=== PATIENT | male | born 1995 | race Caucasian/White ===

== ENCOUNTER 2018-03-19 21:47 | Emergency (ER) | payer MEDICAID, SELFPAY ==
[2018-03-19 21:48] VITALS: BP 133/73; PULSE 87; RESP 16; TEMP 37.1; O2SAT 100; BMI 22.1
[2018-03-19] MEDS: 0.9% Normal Saline 1,000 ML 1000 ML IV (22:30)
[2018-03-19 22:43] LABS: Absolute Neutrophil Count 7.1 X10^3/uL (2.0-7.7); Basophil# 0.04 X10^3/uL; Basophil% 0.3 % (0-1); Eosinophil# 0.58 X10^3/uL; Eosinophils% 5.1 % (0-5); Hematocrit 35.1 % (40-54); Mean Corp Hgb Conc 34.2 g/gl (32-36); Mean Corpuscular Volume 84.8 fL (80-94); Mean Platelet Vol. 9.5 fl (6.2-12.0); Monocyte# 0.65 X10^3/uL; Monocyte% 5.7 % (0-10); Neutrophil # 7.09 X10^3/uL (2.7-7.7); Neutrophil % 61.7 % (47-70); POSITIVE COUNT NO; POSITIVE DIFFERENTIAL NO; POSITIVE MORPHOLOGY NO; Platelet Count 236 K/mm3 (150-450); RBC Distribution Width CV 12.4 % (11.6-14.6); RBC Distribution Width SD 38.3 fl (35.1-43.9); Red Blood Count 4.14 M/mm3 (4.6-6.2); White Blood Count 11.5 K/mm3 (4.4-11.0)
[2018-03-19 22:59] LABS: AST(SGOT) 12 U/L (15-37); Alanine Aminotransfer ALT/SGPT 21 U/L (16-61); Albumin, Serum 3.5 g/dL (3.2-5.0); Alkaline Phosphatase 65 U/L (45-117); Anion Gap 8 (5-15); BUN 13 mg/dL (7-18); BUN/Creat Ratio 16.4 RATIO (10-20); Bilirubin, Direct 0.09 mg/dL (0.00-0.30); Calcium,Total 8.1 mg/dL (8.5-10.1); Chloride 110 mmol/L (98-107); Creatinine, Serum 0.79 mg/dL (0.70-1.30); EST Glomerular Filtration Rate 129 mL/min (>60); Est Glom Filt Rate - Afr Amer 156 mL/min (>60); Estimated Creatinine Clearance 139.67 ml/min; Globulin 2.9 g/dL (2.2-4.2); Glucose 100 mg/dL (74-106); Lipase 217 U/L (73-393); Potassium 3.7 mmol/L (3.5-5.1); Protein, Total 6.4 g/dL (6.4-8.2); Sodium Level 142 mmol/L (136-145)
--- NOTE | 2018-03-19 23:24 | ED.DCSUM_ITS ---
- ER Visit Summary Date of Service: 03/19/18 Chief Complaint: Lump on abdomen History of Present Illness: The patient is a 23 M who reports that he has had a lump on his upper abdomen that began approximate 2 weeks ago. Is increased in size over the past 3 days. Reports he has a stabbing pain when his touch is 7 out of 10 severity. Also reports his last problem was 4 days ago. Typically he goes daily. Patient reports that he has been more fatigued than usual for the past month. He complains of a sore throat that 6 out of 10 severity. He denies any other complaints Physical Examination: Vitals: Stable. Afebrile. General: Well-nourished and well-developed. Head: Normocephalic atraumatic. Neck: Supple, no lymphadenopathy. No JVD. Nontender. Cardiovascular: Regular rate and rhythm. No murmurs. Respiratory: No respiratory distress. Clear to auscultation bilaterally. Abdominal: Soft, nontender, nondistended, normal bowel sounds. No guarding, rebound, or peritoneal signs. Approximately 1 cm palpable mass in the subcutaneous tissues in the epigastric region. No overlying erythema or warmth to suggest an abscess. Back: Nontender. Extremities: Nontender, no edema. Skin: Normal color, no rash. Neurologic: Alert and oriented ?3. Cranial nerves II through XII are intact. Normal strength and sensation. Psych: Normal affect. Test Results: CBC is more for white count 11.5 and H&H 12.0 35.1. Chem-7 more for chloride 110 and calcium of 8.1. LFTs marked for an AST of 12. Lipase normal. CT flank shows no acute disease. Emergency Department Course and Treatment: Patient's resting comfortably without complaint. Treatment Plan: Patient be discharged instructions follow-up his primary care physician in 1 week if not improving. Return to the emergency department for any worsening symptoms. Disposition: To home in improved and stable condition. Impression: 1. Enlarged lymph node epigastric region. This note was generated with [employer] dictation software. It may contain incorrect words, spelling, and punctuation that were not noted in review of the chart prior to signing ED Disposition - Plan for ED Patient: Chief Complaint: Wound Instructions: ED Abdominal Pain Unkn Cause Referrals: Doctor,Your [STAFF PHYSICIAN] - 1 Week if not improving
[2018-03-19 23:48] VITALS: BP 129/70; PULSE 80; RESP 16; O2SAT 97
== END 2018-03-19 23:50 | disposition home or self-care (01) ==
PROVIDERS: Emergency Provider Emergency Medicine
DX: R59.0 Localized enlarged lymph nodes (principal); Z72.0 Tobacco use
CPT/HCPCS: 74176; 80048; 80076; 83690; 85025; 99283; A4216

== ENCOUNTER 2018-04-01 14:57 | Emergency (ER) | payer MEDICAID, SELFPAY ==
[2018-04-01 15:00] VITALS: BP 100/64; PULSE 94; RESP 17; TEMP 36.8; O2SAT 98; BMI 23.4
--- NOTE | 2018-04-01 15:50 | ED.VISSUMM ---
- ER Visit Summary Date of Service: 04/01/18 Chief Complaint: Epigastric and chest fullness History of Present Illness: The patient is a 23 M has known pectus excavatum and was seen here several weeks ago worked up and says he has this tissue between his ribs and lower sternum. Denies other symptoms. Today he has had some mild nausea. No vomiting. No diarrhea Physical Examination: Well-appearing young male. Vital signs are stable and afebrile. He does not look septic or toxic. He is in no acute distress. H EENT exam unremarkable. Neck nontender. Lungs clear to auscultation bilaterally. Heart regular rate and rhythm no murmur. Abdomen soft nondistended normal bowel sounds no peritoneal signs. Patient has either bone or cartilage at the site subxiphoid area of his abdomen. Abdominal pain. There is no hernia. I do not suspect this to be a mass. He is moving all 4 extremities. They are neurovascularly intact. Nontender. No edema. Back nontender neurologic exam is normal. Test Results: Patient had a workup 2-3 weeks ago which was negative including a CT of the abdomen and pelvis. I explained both he and his significant other this is most likely either bony or cartilaginous tissue. And he can follow-up. Emergency Department Course and Treatment: [] Treatment Plan: Discharged to follow-up with PCP. Disposition: Discharge Impression: History of pectus excavatum Evaluation for epigastric and lower chest fullness This note was generated with [employer] dictation software. It may contain incorrect words, spelling, and punctuation that were not noted in review of the chart prior to signing ED Disposition - Plan for ED Patient: Chief Complaint: Other, Pain/Inj Referrals: Care Physician,No Primary [Primary Care Provider] -
--- NOTE | 2018-04-01 15:53 | ED.DEP ---
ED Disposition - Plan for ED Patient: Disposition: Home or Assisted Living Chief Complaint: Other, Pain/Inj Referrals: Chris Kaur MD [STAFF PHYSICIAN] - As Needed Additional Instructions: This is most likely either bony or cartilaginous tissue secondary to your pectus excavatum of your chest wall
[2018-04-01 16:06] VITALS: RESP 14
== END 2018-04-01 16:16 | disposition home or self-care (01) ==
LOC: ED 16:08
PROVIDERS: Emergency Provider Emergency Medicine
DX: Q67.6 Pectus excavatum (principal); Z72.0 Tobacco use
CPT/HCPCS: 99282

== ENCOUNTER 2018-07-07 23:15 | Emergency (ER) | payer SELFPAY ==
[2018-07-07 23:17] VITALS: BP 118/64; PULSE 100; RESP 18; TEMP 37; O2SAT 98; BMI 22.0
[2018-07-07 23:51] VITALS: O2SAT 98
--- NOTE | 2018-07-08 00:08 | ED.DCSUM_ITS ---
- ER Visit Summary Date of Service: 07/08/18 Chief Complaint: Sore throat and cough History of Present Illness: The patient is a 23 M sore throat and cough since this morning. Sick contacts with sister. No fevers. States has sweats. States throat is scratchy. Tonsillectomy in the past. Tobacco history. No wheezing. No vomiting or diarrhea. Physical Examination: General: Alert and oriented ?3, no acute distress HEENT: Normocephalic, atraumatic. Moist mucosa membranes. TMs normal bilaterally. No posterior pharyngeal erythema. Tonsils absent. Airway patent. No trismus. Neck: supple, nontender. No lymphadenopathy Cardiovascular: Regular rate and rhythm, no murmurs Respiratory: Normal breath sounds, symmetric, no distress Abdomen: Soft, nontender, nondistended Extremities: Nontender, no edema, pulses intact ?4 Neuro: no focal neurological deficits. Test Results: Emergency Department Course and Treatment: Patient nontoxic, vital signs stable. Discussed viral syndrome with the patient. With his symptomatic sore throat Decadron was given. Did not have a PCP. Requesting antibiotics. Discussed no PCP or prescription for [id number] before starting antibiotics. Addition of Tessalon Perles. Work note given. Follow-up as an outpatient given. Treatment Plan: [] Disposition: Discharge Impression: 1. Acute upper respiratory infection This note was generated with [employer] dictation software. It may contain incorrect words, spelling, and punctuation that were not noted in review of the chart prior to signing ED Disposition - Plan for ED Patient: Disposition: Home or Assisted Living Chief Complaint: Cold Sx Diagnosis: Acute upper respiratory infection Instructions: ED Upper Resp Infec No Abx Tx Prescriptions: Azithromycin [Zithromax Z-Tyree] 250 mg PO UD #1 box Benzonatate [Tessalon Perle] 200 mg PO TID PRN PRN #20 capsule PRN Reason: Cough Referrals: Care Physician,No Primary [Primary Care Provider] - Chris Kaur MD [STAFF PHYSICIAN] - 5-7 Days Additional Instructions: Wait at least 5 days and if worsens then start antibiotics.
--- OUTSIDE RECORDS SUMMARY | 2018-08-23 23:08 | XMS RPT_ITS ---
:1995 Author Organization [facility] Care Team Providers Name Role Phone KIKE FENTON DO Admitting Unavailable KIKE FENTON DO Attending Unavailable KIKE FENTON DO Primary Care Unavailable NO, DOCTOR ON Consulting Unavailable NO, DOCTOR ON Referring Unavailable Primay Care Physicia, No Primary Care Unavailable Mani Jerez Attending Unavailable Primay Care Physicia, No Primary Care Unavailable Pedrito Almanza Attending Unavailable Pedrito Almanza Referring Unavailable Primay Care Physicia, No Primary Care Unavailable Jose Guerrier Attending Unavailable PROBLEMS PROBLEMS No Problem Records FoundPROCEDURES PROCEDURES No Procedure Records FoundRESULTS RESULTS EMERGENCY DEPARTMENT Observed: 07/08/2018 Status: F Source: [place] SUMMARY 12:08 AM [facility] [place], [place] REPOSITORY [facility] Medical Records Department [address] [place] [address] Emergency Department Summary 07/08/18 0004 MR#: [id number] Acct: [id number] Name: ISAEL VELIZ Rep #: [id number] : 1995 23 From: Mani Morales PCP: Care Physician, No Primary Status: PRE ER - ER Visit Summary Date of Service: 07/08/18 Chief Complaint: Sore throat and cough History of Present Illness: The patient is a 23 M sore throat and cough since this morning. Sick contacts with sister. No fevers. States has sweats. States throat is scratchy. Tonsillectomy in the past. Tobacco history. No wheezing. No vomiting or diarrhea. Physical Examination: General: Alert and oriented 3, no acute distress HEENT: Normocephalic, atraumatic. Moist mucosa membranes. TMs normal bilaterally. No posterior pharyngeal erythema. Tonsils absent. Airway patent. No trismus. Neck: supple, nontender. No lymphadenopathy Cardiovascular: Regular rate and rhythm, no murmurs Respiratory: Normal breath sounds, symmetric, no distress Abdomen: Soft, nontender, nondistended Extremities: Nontender, no edema, pulses intact 4 Neuro: no focal neurological deficits. Test Results: Emergency Department Course and Treatment: Patient nontoxic, vital signs stable. Discussed viral syndrome with the patient. With his symptomatic sore throat Decadron was given. Did not have a PCP. Requesting antibiotics. Discussed no PCP or prescription for dyms-ugh-fai before starting antibiotics. Addition of Tessalon Perles. Work note given. Follow-up as an outpatient given. Treatment Plan: [] Disposition: Discharge Impression: 1. Acute upper respiratory infection This note was generated with relocality dictation software. It may contain incorrect words, spelling, and punctuation that were not noted in review of the chart prior to signing ED Disposition - Plan for ED Patient: Disposition: Home or Assisted Living Chief Complaint: Cold Sx Diagnosis: Acute upper respiratory infection Instructions: ED Upper Resp Infec No Abx Tx Prescriptions: Azithromycin [Zithromax Z-Tyree] 250 mg PO UD #1 box Benzonatate [Tessalon Perle] 200 mg PO TID PRN PRN #20 capsule PRN Reason: Cough Referrals: Care Physician,No Primary [Primary Care Provider] - Chris Kaur MD [STAFF PHYSICIAN] - 5-7 Days Additional Instructions: Wait at least 5 days and if worsens then start antibiotics. What to do if you have Problems For any increased pain, shortness of breath, bleeding, nausea or vomiting, chest pain, or any unexpected problems, contact your Primary Care Provider. Call [facility] ([phone]) or report to the closest Emergency Room. Call 911 if necessary. 07/08/18 0008 <Electronically signed by Mani Morales> Date Mani Morales Cosigner Signature (If Indicated): Date CC: No Primary Care Physician EMERGENCY DEPARTMENT Observed: 04/01/2018 Status: F Source: [place] SUMMARY 8:37 PM [facility] [place], [place] REPOSITORY [facility] Medical Records Department [address] [place] [address] Emergency Department Summary 04/01/18 1550 MR#: [id number] Acct: [id number] Name: ISAEL VELIZ Rep #: [id number] : 1995 23 From: Jose Guerrier MD PCP: Care Physician, No Primary Status: DEP ER - ER Visit Summary Date of Service: 04/01/18 Chief Complaint: Epigastric and chest fullness History of Present Illness: The patient is a 23 M has known pectus excavatum and was seen here several weeks ago worked up and says he has this tissue between his ribs and lower sternum. Denies other symptoms. Today he has had some mild nausea. No vomiting. No diarrhea Physical Examination: Well-appearing young male. Vital signs are stable and afebrile. He does not look septic or toxic. He is in no acute distress. H EENT exam unremarkable. Neck nontender. Lungs clear to auscultation bilaterally. Heart regular rate and rhythm no murmur. Abdomen soft nondistended normal bowel sounds no peritoneal signs. Patient has either bone or cartilage at the site subxiphoid area of his abdomen. Abdominal pain. There is no hernia. I do not suspect this to be a mass. He is moving all 4 extremities. They are neurovascularly intact. Nontender. No edema. Back nontender neurologic exam is normal. Test Results: Patient had a workup 2-3 weeks ago which was negative including a CT of the abdomen and pelvis. I explained both he and his significant other this is most likely either bony or cartilaginous tissue. And he can follow-up. Emergency Department Course and Treatment: [] Treatment Plan: Discharged to follow-up with PCP. Disposition: Discharge Impression: History of pectus excavatum Evaluation for epigastric and lower chest fullness This note was generated with relocality dictation software. It may contain incorrect words, spelling, and punctuation that were not noted in review of the chart prior to signing ED Disposition - Plan for ED Patient: Chief Complaint: Other, Pain/Inj Referrals: Care Physician,No Primary [Primary Care Provider] - What to do if you have Problems For any increased pain, shortness of breath, bleeding, nausea or vomiting, chest pain, or any unexpected problems, contact your Primary Care Provider. Call [facility] ([phone]) or report to the closest Emergency Room. Call 911 if necessary. 04/01/182036 <Electronically signed by Jose Guerrier MD> Date Jose Guerrier MD Cosigner Signature (If Indicated): Date CC: No Primary Care Physician DISCHARGE INSTRUCTION Observed: 04/01/2018 Status: F Source: [place] 8:37 PM [facility] [place], [place] REPOSITORY [facility] Medical Records Department [address] [place] [address] Discharge Instruction 04/01/18 1553 MR#: [id number] Acct: [id number] Name: VELIZISAELCAMDEN LIN Rep #: [id number] : 1995 23 From: Jose Guerrier MD PCP: Care Physician, No Primary Status: DEP ER ED Disposition - Plan for ED Patient: Disposition: Home or Assisted Living Chief Complaint: Other, Pain/Inj Referrals: Chris Kaur MD [STAFF PHYSICIAN] - As Needed Additional Instructions: This is most likely either bony or cartilaginous tissue secondary to your pectus excavatum of your chest wall What to do if you have Problems For any increased pain, shortness of breath, bleeding, nausea or vomiting, chest pain, or any unexpected problems, contact your Primary Care Provider. Call [facility] ([phone]) or report to the closest Emergency Room. Call 911 if necessary. 04/01/182036 <Electronically signed by Jose Guerrier MD> Date Jose Guerrier MD Cosigner Signature (If Indicated): Date CC: No Primary Care Physician EMERGENCY DEPARTMENT Observed: 03/20/2018 Status: F Source: [place] SUMMARY 12:36 AM [facility] [place] REPOSITORY [facility] Medical Records Department [address] [place] [address] Emergency Department Summary 03/19/18 2322 MR#: [id number] Acct: [id number] Name: ISAEL VELIZ Rep #: [id number] : 1995 23 From: Pedrito Almanza MD PCP: Care Physician, No Primary Status: DEP ER - ER Visit Summary Date of Service: 03/19/18 Chief Complaint: Lump on abdomen History of Present Illness: The patient is a 23 M who reports that he has had a lump on his upper abdomen that began approximate 2 weeks ago. Is increased in size over the past 3 days. Reports he has a stabbing pain when his touch is 7 out of 10 severity. Also reports his last problem was 4 days ago. Typically he goes daily. Patient reports that he has been more fatigued than usual for the past month. He complains of a sore throat that 6 out of 10 severity. He denies any other complaints Physical Examination: Vitals: Stable. Afebrile. General: Well-nourished and well-developed. Head: Normocephalic atraumatic. Neck: Supple, no lymphadenopathy. No JVD. Nontender. Cardiovascular: Regular rate and rhythm. No murmurs. Respiratory: No respiratory distress. Clear to auscultation bilaterally. Abdominal: Soft, nontender, nondistended, normal bowel sounds. No guarding, rebound, or peritoneal signs. Approximately 1 cm palpable mass in the subcutaneous tissues in the epigastric region. No overlying erythema or warmth to suggest an abscess. Back: Nontender. Extremities: Nontender, no edema. Skin: Normal color, no rash. Neurologic: Alert and oriented 3. Cranial nerves II through XII are intact. Normal strength and sensation. Psych: Normal affect. Test Results: CBC is more for white count 11.5 and H AND H 12.0 35.1. Chem-7 more for chloride 110 and calcium of 8.1. LFTs marked for an AST of 12. Lipase normal. CT flank shows no acute disease. Emergency Department Course and Treatment: Patient's resting comfortably without complaint. Treatment Plan: Patient be discharged instructions follow- up his primary care physician in 1 week if not improving. Return to the emergency department for any worsening symptoms. Disposition: To home in improved and stable condition. Impression: 1. Enlarged lymph node epigastric region. This note was generated with relocality dictation software. It may contain incorrect words, spelling, and punctuation that were not noted in review of the chart prior to signing ED Disposition - Plan for ED Patient: Chief Complaint: Wound Instructions: ED Abdominal Pain Unkn Cause Referrals: Doctor,Your [STAFF PHYSICIAN] - 1 Week if not improving What to do if you have Problems For any increased pain, shortness of breath, bleeding, nausea or vomiting, chest pain, or any unexpected problems, contact your Primary Care Provider. Call [facility] ([phone]) or report to the closest Emergency Room. Call 911 if necessary. 03/20/18 0036 <Electronically signed by Pedrito Almanza MD> Date Pedrito Almanza MD Cosigner Signature (If Indicated): Date CC: No Primary Care Physician CBC W/DIFF, AUTOMATED Collected: 03/19/2018 Status: F Source: [place] 10:30 PM [facility] [place], [place] REPOSITORY TYPE CODE TESTS RESULT OUT OF RANGE REFERENCE UNITS LAB L100.1000 4.4-11.0 K/mm3 High WBC 11.5 LAB L100.1200 4.6-6.2 M/mm3 Low RBC 4.14 LAB L100.1300 13.0-16.5 g/dl Low HGB 12.0 LAB L100.1400 40-54 % Low HCT 35.1 LAB L100.1500 80-94 fL Normal MCV 84.8 LAB L100.1600 27.0-32.0 pg Normal MCH 29.0 LAB L100.1700 32-36 g/gl Normal MCHC 34.2 LAB L100.1810 11.6-14.6 % Normal RDW CV 12.4 LAB L100.1820 35.1-43.9 fl Normal RDW SD 38.3 LAB L100.1900 150-450 K/mm3 Normal PLT 236 LAB L100.2000 6.2-12.0 fl Normal MPV 9.5 LAB L100.2100 47-70 % Normal NEUT% 61.7 LAB L100.2200 19-41 % Normal LY% 27.0 LAB L100.2300 0-10 % Normal MONO% 5.7 LAB L100.2400 0-5 % High EO% 5.1 LAB L100.2500 0-1 % Normal BASO% 0.3 LAB L100.2550 0.0-0.9 % Normal IM GRAN % 0.200 Result Comment: IG% - Immature Granulocytes (promyelocytes, myelocytes and metamyelocytes) > 1% indicates that a LEFT SHIFT is Present. LAB L100.2620 2.0-7.7 X10 3/uL Normal Absolute Neut 7.1 LAB L100.2720 0.83-4.51 X10 3/ul Normal Absolute Lymph 3.10 Performed By: #### L100.0100 #### [facility] [address] [place], [place], [address] BASIC METABOLIC Collected: 03/19/2018 Status: F Source: [place] PROFILE (BMP) 10:30 PM [facility] [place], [place] REPOSITORY TYPE CODE TESTS RESULT OUT OF RANGE REFERENCE UNITS LAB L501.0100 74-106 mg/dL Normal GLU 100 Result Comment: Fasting Glucose result from 100 to 125 mg/dL suggests IMPAIRED HOMEOSTASIS per A.D.A. criteria. Please note revised GLUCOSE reference range effective 2017. LAB L501.1000 7-18 mg/dL Normal BUN 13 LAB L501.1100 0.70-1.30 mg/dL Normal CREAT,SERUM 0.79 Result Comment: The validity of the calculated GFR AND GFRAA in patients over 70 years has not been determined. Clinical correlation is essential. LAB L501.1110 >60 mL/min Normal EST GFR 129 Result Comment: Non- GFR Calc LAB L501.1115 >60 mL/min Normal EST GFR - AA 156 Result Comment: GFR Calc LAB L501.1255 ml/min Normal Estimated CRCL 139.67 LAB L501.1300 10-20 RATIO BUN/CRE Normal 16.4 LAB L501.2200 8.5-10 mg/dL Low .1 CA 8.1 LAB L501.5300 136-14 mmol/L 5 NA Normal 142 LAB L501.5600 3.5-5. mmol/L 1 K Normal 3.7 LAB L501.5900 98-107 mmol/L High CL 110 LAB L501.6100 21.0-3 mmol/L 2.0 CO2 Normal 24.0 LAB L501.6200 5-15 GAP Normal 8 Performed By: #### L500.2500, L500.3400, L501.2450 #### [facility] [address] [place], [place], [address] LIVER PROFILE Collected: 03/19/2018 Status: F Source: [place] 10:30 PM [facility] [place] REPOSITORY TYPE CODE TESTS RESULT OUT OF RANGE REFERENCE UNITS LAB L501.1500 6.4-8.2 g/dL Normal T PROT 6.4 LAB L501.1800 3.2-5.0 g/dL Normal ALB 3.5 LAB L501.1950 2.2-4.2 g/dL Normal GLOB 2.9 LAB L501.4100 15-37 U/L Low AST 12 LAB L501.4305 45-117 U/L Normal ALK P 65 LAB L501.4405 16-61 U/L Normal ALT 21 LAB L501.4600 0.20-1.00 mg/dL Normal T BILI 0.30 LAB L501.4700 0.00-0.30 mg/dL Normal D BILI 0.09 Performed By: #### L500.2500, L500.3400, L501.2450 #### [facility] [address] [place], [address] LIPASE Collected: 03/19/2018 Status: F Source: [place] 10:30 PM [facility] [place] REPOSITORY TYPE CODE TESTS RESULT OUT OF RANGE REFERENCE UNITS LAB L501.2450 73-393 U/L Normal LIPASE 217 Performed By: #### L500.2500, L500.3400, L501.2450 #### [facility] [address] [place], [address] ABDOMEN/PELVIS WITHOUT Observed: 03/19/2018 Status: F Source: [place] CONT 10:23 PM [facility] [place] [place] REPOSITORY [facility] Imaging Services [address] [place] [address] Abdomen/Pelvis without Cont MR#: [id number] Acct: [id number] Name: ISAEL VELIZ Rep #: [id number] : 1995 M 23 From: Paris Nash MD PCP: Care Physician, No Primary Status: REG ER Study: Abdomen/Pelvis without Cont Date of Exam: 03/19/18 Exam# [id number] Ordering Dr: Pedrito Almanza MD STUDY: CT ABDOMEN AND PELVIS WITHOUT CONTRAST REASON FOR EXAM: Male, 23 years old. Epigastric pain. Lump on his chest below the xiphoid. RADIATION DOSAGE (If Supplied By Facility): CTDIvol = ( 6.19 ) mGy, DLP = ( 313.91 ) mGycm TECHNIQUE: Transaxial images were obtained from the dome of the diaphragm to the symphysis pubis without oral contrast, and without intravenous contrast. Sagittal and coronal images were reconstructed. Individualized dose optimization techniques were used for this CT. COMPARISON: None. FINDINGS: The visualized lung bases are unremarkable. The visualized portions of the heart are within normal limits. Normal liver. Contracted gallbladder. Normal spleen. Normal pancreas. Normal bilateral adrenal glands. Normal right kidney. Normal left kidney. Food distended stomach. Normal small intestine. Normal colon. The appendix is visualized and appears normal. Normal abdominal aorta. Normal inferior vena cava. Normal retroperitoneum. Normal urinary bladder. Normal abdominal wall. Normal osseous structures. CT/Abdomen/Pelvis without Cont IMPRESSION: Food distended stomach. Otherwise normal abdomen and pelvic CT exam. Negative for any visible abnormality of the sternum, xiphoid or anterior abdominal wall. Electronically Signed: Paris Nash MD at 23:08 EDT , Service support , CC: No Primary Care Physician; Pedrito Almanza MD Stopper Maker Helper: Signed EMERGENCY REPORT Observed: 01/04/2018 Status: F Source: [facility] 4:52 AM [facility] EMERGENCY ROOM REPORT NAME ACCOUNT SEX AGE ADMIT DISCHARGE PT MED. RECORD# NUMBER DATE TYPE ISAEL VELIZ [id number] M 22 01/02/18 01/02/18 3 V [id number] ROOM: ER DATE OF : 1995 DICTATING PHYSICIAN: Kike Fenton ADDENDUM DIAGNOSTIC DATA: X-rays obtained of the left middle finger showed no fracture. No subluxation. EMERGENCY DEPARTMENT COURSE AND TREATMENT: I offered to trephinate the nail bed but the patient refused. The patient was placed in a volar aluminum finger splint, because he does have a lot of swelling there and it is very tender. He is telling me he has very severe pain at the fingertip. At this point, we will splint it just in case there is an occult fracture there. I do not see an obvious fracture on the x-ray. I did advised the patient the radiologist will review those films. He was given two Granville 5/325 mg here for the pain. He seems to be in a lot of pain. I gave him a prescription for Granville 5/325 mg 1 every 6 hours as needed for pain, dispense #10 with no refill; Naprosyn 500 mg 1 p.o. every 12 hours, dispense #20 with no refill. He was placed in a volar aluminum finger splint and advised to keep the left hand elevated as much as possible. Ice the area 20 minutes at a time, 4 to 6 times per day. He does not have a family doctor so I will refer him to [facility] for followup in 3 to 5 days. If his symptoms become worse or any other problems develop, return here to the emergency department. DIAGNOSIS: 1. Left middle finger contusion. 2. Left middle finger subungual hematoma. PLAN/DISPOSITION: The patient was discharged in a clinically stable condition. Nursing notes were reviewed. Dictated By: Kike Fenton DO 01/02/18 00:50 JOB #: [id number] Transcribed By: [email or web address] 01/02/18 22:13 Electronically signed by: E-Sign: Dr. Kike Fenton D.O. 01/04/18 04:52 Page 1 of 2 ISAEL VELIZ V Emergency Room Report Page 2 of 2 ISAEL VELIZ V Emergency Room Report EMERGENCY REPORT Observed: 01/04/2018 Status: F Source: [facility] [place] 4:52 AM [facility] EMERGENCY ROOM REPORT NAME ACCOUNT SEX AGE ADMIT DISCHARGE PT MED. RECORD# NUMBER DATE DATE TYPE ISAEL VELIZ [id number] M 22 01/02/18 01/02/18 3 V [id number] ROOM: ER DATE OF : 1995 DICTATING PHYSICIAN: Kike Fenton TIME SEEN: 0020 hours. HISTORY OF PRESENT ILLNESS: The patient is a 22-year-old white male complaining of pain and swelling to the distal tip of the left middle finger. He got that finger caught in a car door and states that the door actually did latch with his finger in it. This occurred several hours ago tonight. He presently rates the pain as 10 on a severity scale of 1 to 10. He describes it as sharp throbbing pain. It is worse with movement. He denies striking his head. PAST MEDICAL HISTORY: Denied. PAST SURGICAL HISTORY: Denied. SOCIAL HISTORY: The patient is a smoker of 1/2 pack per day. Denies use of alcohol or illicit drugs. Lives at home with his family. REVIEW OF SYSTEMS: Denies any chest pain, shortness of breath, cough, sputum, wheezing, abdominal pain, nausea, vomiting, diarrhea, constipation, melena, hematochezia, headache, numbness, unsteady gait, weakness, neck or back pain. Does complain of left distal middle finger pain and swelling. Further review of systems is negative. PHYSICAL EXAMINATION: VITAL SIGNS: Blood pressure 154/90, pulse 89, respirations 18, temperature 98.8, pulse oximetry 95%. Weight 145 lbs. The patient is alert and oriented x3. The patient appears in some mild distress secondary to left finger pain. Pleasant and cooperative. HEENT: Head appears atraumatic. Pupils are equal and reactive to light. Red reflex is intact bilaterally. Extraocular muscles are intact. No conjunctival injection. Nose exhibits no rhinorrhea or epistaxis. Mucous membranes are moist. Teeth intact. NECK: Supple. Trachea is midline. No JVD or lymphadenopathy. No posterior cervical tenderness. No nuchal rigidity. LUNGS: Lungs are clear to auscultation in all lung torres. No adventitious sounds are noted. No accessory muscle use. CV: Heart rate and rhythm are regular without murmur. ABDOMEN: Soft and nontender with normoactive bowel sounds x4 quadrants. No guarding or rigidity. No rebound. No palpable abdominal masses. No hepatosplenomegaly. BACK: No midline or paraspinal region tenderness. No increased paraspinal muscle rigidity. Negative Lloyds sign. EXTREMITIES: The distal Page 1 of 2 ISAEL VELIZ V Emergency Room Report tip of the left middle finger is swollen and tender with a small amount of blood noted underneath the fingernail of the left middle finger. The subungual hematoma is small at this point. He does have a lot of soft tissue swelling to the distal phalanx region of the left middle finger. There is no associated skin abrasion or laceration. He is able to flex and extend all digits well against resistance of the left hand. Capillary refill is less than 2 seconds. He has good intact left radial pulse. He has good sensation to light touch in all digits of the left hand. NEURO: The patient is alert and oriented x4. No motor or sensory deficits noted. Speech is normal. SKIN: Warm and dry. No diaphoresis or rash. PSYCH: Normal affect. Pleasant and cooperative. EMERGENCY DEPARTMENT COURSE AND TREATMENT: Presently I have an x-ray ordered of the middle finger and then we will reevaluate. DIAGNOSIS: Dictated By: Kike Fenton DO 01/02/18 00:29 JOB #: [id number] Transcribed By: [email or web address] 01/02/18 22:04 Electronically signed by: E-Sign: Dr. Kike Fenton D.O. 01/04/18 04:52 Page 2 of 2 ISAEL VELIZ V Emergency Room Report FINGERS LT Observed: 01/02/2018 Status: F Source: [facility] 12:31 AM [place] [address] Patient: ISAEL VELIZ V. Phone#: : 1995 Age: 22 Gender: M Pt. Type: ER Account: [id number] Location: 052 Ordering: KIKE FENTON Exam Date: 01/02/2018/0:20 Family Phys: NO DOCTOR Charge Code: [id number] Physician: [facility] Order #: [id number] DLP Dose#: PROCEDURE: X-RAY FINGER LT MIN 2 VIEWS COMPARISON: None. INDICATIONS: Injury to finger FINDINGS: BONES: Normal. No significant arthropathy or acute abnormality. SOFT TISSUES: The soft tissue swelling of the distal finger is present. EFFUSION: None visible. OTHER: Negative. CONCLUSION: No acute disease. Dictated by: Janet Varela MD on 01/03/2018 at 23:56 Approved by: Janet Varela MD on 01/03/2018 at 23:56 PROGRESS Observed: 10/07/2017 Status: COMPLETED Source: [place] 7:58 PM [facility] REPOSITORY HNO ID: [id number] Author: Jasmin Stern Service: (none) Author Type: Physician Is Architect Type: Progress Notes Filed: 10/07/2017 8:19 PM Note Text: 10/07/2017 Patient presents with: GRANT, ST, vomiting, fever, chills and dizzy: woke up with symptoms today SUBJECTIVE: This is a 22 year old that is here today for Complaint(s) of sore throat and GRANT x today. + vomiting earlier today, none since this morning. Occasional cough. Has had some dizziness, none currently. + feverish/chills. Needs a note for work. PAST MEDICAL HISTORY Diagnosis Date - Hand injury RIGHT - Pelvis fracture (HCC) ALLERGIES Review of patient's allergies indicates no known allergies. MEDICATIONS Current Outpatient Prescriptions: oxyCODONE-acetaminophen (PERCOCET) 5-325 mg tablet Take 1 tablet by mouth every 8 hours as needed. oxyCODONE-acetaminophen (PERCOCET) 5-325 mg tablet Take 1 tablet by mouth every 6 hours as needed. oxyCODONE-acetaminophen (PERCOCET) 5-325 mg tablet Take 1 tablet by mouth every 4 hours as needed. aspirin, enteric coated (ASPIRIN, ENTERIC COATED) 325 mg EC tablet Take 325 mg by mouth twice daily. oxyCODONE-acetaminophen (PERCOCET) 5-325 mg tablet Take 1 tablet by mouth every 6 hours as needed. No current facility-administered medications for this visit. SOCIAL HISTORY Social History Marital status: Single Spouse name: Years of education: Number of children: Occupational History Occupation Employer Comment [employer] Social History Main Topics Smoking status: Current Every Day Smoker Packs/day: 0.50 Years: 10.00 Types: Cigarettes Smokeless status: Never Used Alcohol use: Yes Comment: ONCE A MONTH IF THAT Drug use: No REVIEW OF SYSTEMS All other reviewed and negative other than HPI. OBJECTIVE: BP 118/64 Pulse 98 Temp 36.6 ?C (97.9 ?F) (Tympanic) Resp 20 Wt 63.5 kg (140 lb) BMI 20.67 kg/m2 APPEARANCE Well appearing, alert, in no acute distress, well-hydrated, well nourished. EYES PERRLA, conjunctiva and sclera normal. EARS External ears normal, canals clear. TMs normal JUSTICE NOSE/SINUS Nares normal. Septum midline. Mucosa normal. No drainage or sinus tenderness. THROAT + posterior oropharyngeal erythema, no exudate. Uvula midline NECK Supple, no adenopathy HEART RRR with normal S1 and S2 LUNG clear to auscultation, No wheezing, rhonchi, rales. ASSESSMENT/PLAN: 1. Sore throat - ICD9: 462, ICD10: J02.9 - Rapid Strep negative in the office today and Throat culture pending - Discussed supportive care treatment with fluids, rest and analgesia. - The patient should follow up in 3-5 days if symptoms persist or worsen - Call back if drooling, increased temperature, symptoms of dehydration and/or still sick in one week - RAPID STREP TEST B/O - GROUP A STREPTOCOCCUS BY PCR Reviewed red flags and when to seek care sooner. Note for work printed. The patient indicates understanding of these issues and agrees with the plan. Jasmin Stern PA-C CNOV Observed: 10/07/2017 Status: COMPLETED Source: [place] 7:45 PM [facility] REPOSITORY Office Visit (WSTR) ISAEL VELIZ ([id number]) 1995 M Date Time Provider Department 10/07/17 7:45 PM [facility] During your visit today, we recorded the following information about you: Temperature Pulse Respiration Blood pressure 97.9 degrees 98/minute 20/minute 118/64 Weight 63.5 kg Jasmin Stern PA-C 10/07/2017 8:19 PM Signed 10/07/2017 Patient presents with: GRANT, ST, vomiting, fever, chills and dizzy: woke up with symptoms today SUBJECTIVE: This is a 22 year old that is here today for Complaint(s) of sore throat and GRANT x today. + vomiting earlier today, none since this morning. Occasional cough. Has had some dizziness, none currently. + feverish/chills. Needs a note for work. PAST MEDICAL HISTORY Diagnosis Date - Hand injury RIGHT - Pelvis fracture (HCC) ALLERGIES Review of patient's allergies indicates no known allergies. MEDICATIONS Current Outpatient Prescriptions: oxyCODONE-acetaminophen (PERCOCET) 5-325 mg tablet Take 1 tablet by mouth every 8 hours as needed. oxyCODONE-acetaminophen (PERCOCET) 5-325 mg tablet Take 1 tablet by mouth every 6 hours as needed. oxyCODONE-acetaminophen (PERCOCET) 5-325 mg tablet Take 1 tablet by mouth every 4 hours as needed. aspirin, enteric coated (ASPIRIN, ENTERIC COATED) 325 mg EC tablet Take 325 mg by mouth twice daily. oxyCODONE-acetaminophen (PERCOCET) 5-325 mg tablet Take 1 tablet by mouth every 6 hours as needed. No current facility-administered medications for this visit. SOCIAL HISTORY Social History Marital status: Single Spouse name: Years of education: Number of children: Occupational History Occupation Employer Comment [employer] Social History Main Topics Smoking status: Current Every Day Smoker Packs/day: 0.50 Years: 10.00 Types: Cigarettes Smokeless status: Never Used Alcohol use: Yes Comment: ONCE A MONTH IF THAT Drug use: No REVIEW OF SYSTEMS All other reviewed and negative other than HPI. OBJECTIVE: BP 118/64 Pulse 98 Temp 36.6 ?C (97.9 ?F) (Tympanic) Resp 20 Wt 63.5 kg (140 lb) BMI 20.67 kg/m2 APPEARANCE Well appearing, alert, in no acute distress, well- hydrated, well nourished. EYES PERRLA, conjunctiva and sclera normal. EARS External ears normal, canals clear. TMs normal JUSTICE NOSE/SINUS Nares normal. Septum midline. Mucosa normal. No drainage or sinus tenderness. THROAT + posterior oropharyngeal erythema, no exudate. Uvula midline NECK Supple, no adenopathy HEART RRR with normal S1 and S2 LUNG clear to auscultation, No wheezing, rhonchi, rales. ASSESSMENT/PLAN: 1. Sore throat - ICD9: 462, ICD10: J02.9 - Rapid Strep negative in the office today and Throat culture pending - Discussed supportive care treatment with fluids, rest and analgesia. - The patient should follow up in 3-5 days if symptoms persist or worsen - Call back if drooling, increased temperature, symptoms of dehydration and/or still sick in one week - RAPID STREP TEST B/O - GROUP A STREPTOCOCCUS BY PCR Reviewed red flags and when to seek care sooner. Note for work printed. The patient indicates understanding of these issues and agrees with the plan. Jasmin Stern PA-C Referring Provider: SELF [200] Allergies As of Date: 10/07/2017 (No Known Allergies) Date Reviewed: 10/07/2017 Reviewed by: Airam Jeter LPN - Fully Assessed Reason for Visit: GRANT, ST, vomiting, fever, chills and dizzy [Other] Cmt: woke up with symptoms today Primary Visit Diagnosis:Sore throat [J02.9] Order(s):RAPID STREP TEST B/O [[id number]] Order #: [id number] GROUP A STREPTOCOCCUS BY PCR [SQGASPCR] Order #: [id number] Prescriptions as of 10/07/2017 Sig: OXYCODONE-ACETAMINOPHEN 5 MG-* Take 1 tablet by mouth every * OXYCODONE-ACETAMINOPHEN 5 MG-* Take 1 tablet by mouth every * OXYCODONE-ACETAMINOPHEN 5 MG-* Take 1 tablet by mouth every * ASPIRIN 325 MG TABLET,DELAYED* Take 325 mg by mouth twice da* OXYCODONE-ACETAMINOPHEN 5 MG-* Take 1 tablet by mouth every * Medication notes this encounter OXYCODONE-ACETAMINOPHEN 5 MG-325 MG TABLET >> Airam Jeter LPN 10/07/2017 7:49 PM >> AIRAM JETER LPN ThuOct 07, 2017 7:49 PM Not Taking OXYCODONE-ACETAMINOPHEN 5 MG-325 MG TABLET >> Airam Jeter LPN 10/07/2017 7:49 PM >> AIRAM JETER LPN ThuOct 07, 2017 7:49 PM Not Taking ASPIRIN 325 MG TABLET,DELAYED RELEASE >> Airam Jeter LPN 10/07/2017 7:49 PM >> AIRAM JETER LPN ThuOct 07, 2017 7:49 PM Not Taking Problem List As Of Date 10/07/2017 Noted Resolved Closed displaced fracture of anterior column of*INVALID FOR* Closed displaced fracture of carpal bone of lef*INVALID FOR* Letter Text Jasmin Stern PA-C Urgent Care [address] [facility] [address] Dept: [phone] 10/07/2017 Isael Veliz [address] [facility] [address] To Whom it May Concern: This is to certify that Isael Veliz was seen at our office for medical care. If you have any questions please feel free to call. Sincerely: Jasmin Stern PA-C Encounter Status:Closed by JASMIN STERN PA-C on 10/07/17 GROUP A STREP BY Collected: 10/07/2017 Status: F Source: [place] PCR 5:54 PM [facility] REPOSITORY TYPE CODE TESTS RESULT OUT OF REFERENCE UNITS RANGE LAB GASSRC Throat Swab GAS Specimen Source LAB PCRGAS Negative for Group A Strep Group A PCR Streptococcus by PCR. Result Comment: This test was developed and its performance characteristics determined by [facility]'s Rajat Wong [facility] Pathology and Laboratory Medicine [place] ([facility]). It has not been cleared or approved by the FDA. [facility] is regulated under CLIA as qualified to perform high-complexity testing. This test is used for clinical purposes. It should not be regarded as inv estigational or for research. Performed By: #### GASPCR #### [facility] [address] [address] ALLERGIES ALLERGIES DATE TYPE / CODE NAME / CODE REACTION SEVERITY SOURCE 07/07/2018 Drug Iodinated Itching Unknown Mondamin Allergy/106607611(S Contrast- Oral [facility]) and IV Hospital Dye/[id number]( Repository RXNORM) Miscellaneous No Known Drug Moderate Rodrick Pomerene Allergy/127256137(S Allergies (Severity [facility] CT) Modifier) [facility] (Qualifier Repository Value) Drug NO KNOWN [place] Class/388926291(SNO ALLERGIES [facility]) [place] Repository ENCOUNTERS ENCOUNTERS ADMIT/DISCHARGE ACCOUNT ADMITTING ENCOUNTER LOCATION SOURCE NUMBER CLASS 07/07/2018/07/08/20 [id number] Emergency [address] ing:ED Repository 04/01/2018/04/01/20 [id number] Emergency [address] ing:ED Repository 03/19/2018/03/19/20 [id number] Emergency [address] ing:ED Repository 01/02/2018/01/03/20 [id number] KIKE FENTON Emergency [address] [place], [place] [address]naty 18 DO oom: ERBed: A [facility] Repository 10/07/2017/10/09/[id number] Repository PAYERS PAYERS ENCOUNTER GUARANTOR PAYER SUBSCRIBER SOURCE 07/07/2018 ISAEL LIN Primary Insurance:SELF NOT GIVENUNK Mond[place] [id number] DE[address] [facility] [place] Number: Effective Hospital [id number]: [phone]) Date:2018-07-07 Repository [phone] () 04/01/2018 ISAEL LIN Primary ISAEL RILEY Mondamin [id number] DEPOT Insurance:CARESOURCEPo MILLERDOB: Counts Include [address] [facility] [place] Number: [id number] Hospital [address]Xhk: [phone] [id number] Repository [phone] () Date:2018-04-[address]ATTN: [place] [address]IU: 04/01/2018 Secondary NOT GIVENUNK Mond[place] Insurance:SELF PAY [facility] Number: Effective Repository Date:2018-04-01 03/19/2018 ISAEL LIN Primary ISAEL RILEY [place] [id number] DEPOT Insurance:CARESOURCEPo MILLERDOB: Counts Include [address] [facility] [place] Number: [id number] Hospital [address]Dbn: [phone] [id number] Repository [phone] () Date:2018-03-19[address]ATTN: [place] [address]GM: 03/19/2018 Secondary NOT GIVENUNK Mond[place] Insurance:SELF PAY [facility] Hospital Number: Effective Repository Date:2018-03-19 01/02/2018 ISAEL V Primary ISAEL V Rodrick De Diosne MILLERDOB: Insurance:CARESOURCE MILLERDOB: [facility] [id number] [facility] DEPOT Number: DEPOT Repository [facility] [place] [id number] [facility] [place] [address]Xzg: [phone] Date:Plan Name:[phone] ()
== END 2018-07-08 00:14 | disposition home or self-care (01) ==
PROVIDERS: Emergency Provider Emergency Medicine
DX: J06.9 Acute upper respiratory infection, unspecified (principal); Z72.0 Tobacco use
CPT/HCPCS: 99283

== ENCOUNTER 2018-12-10 19:04 | Emergency (ER) | payer SELFPAY ==
[2018-12-10 19:05] VITALS: BP 114/63; PULSE 88; RESP 16; TEMP 36.6; O2SAT 99; BMI 22.4
--- NOTE | 2018-12-10 19:55 | RAD_ITS ---
STUDY: X-RAY - PELVIS AND LEFT HIP REASON FOR EXAM: Male, 23 years old. Trauma TECHNIQUE: 3 views of the pelvis and hip. COMPARISON: None. FINDINGS: There is a non-specific bowel gas pattern. Normal visualized soft tissue structures. Normal bilateral iliac wings, sacroiliac joints and visualized sacrum. Normal bilateral superior and inferior pubic rami. Normal pubic symphysis. Normal bilateral ischial tuberosities. Normal visualized femoral head. Normal acetabulum. Normal hip joint. RAD/HIP, UNI W/ Pelvis 2-3 Views IMPRESSION: Normal x-ray examination of the pelvis and hip. Electronically Signed: Jose Corey, at 20:42 EDT Tel , Service support ,
[2018-12-10] MEDS: HYDROcodone Bitartrate/Apap 5/325 Tablet PO (20:15)
--- NOTE | 2018-12-10 20:58 | ED.DCSUM_ITS ---
- ER Visit Summary Date of Service: 12/10/18 Chief Complaint: Hip pain History of Present Illness: The patient is a 23 M who fell on his hip, he has a prior pelvis fracture and wants to make sure there is nothing broken. He is able to ambulate. Physical Examination: There is lateral trochanteric pain, no pain with logroll no tenderness in the SI joint no tenderness palpation of the pubic symphysis. Otherwise normal exam Test Results: [] Emergency Department Course and Treatment: [X-rays negative will discharge in stable condition with reassurance. Analgesia provided in the ED.] Treatment Plan: [] Disposition: [Discharge stable condition] Impression: [Hip contusion] This note was generated with [employer] dictation software. It may contain incorrect words, spelling, and punctuation that were not noted in review of the chart prior to signing ED Disposition - Plan for ED Patient: Disposition: Home or Assisted Living Instructions: ED Contusion Lower Ext Prescriptions: Naproxen [Naprosyn] 500 mg PO BID PRN #20 tab Referrals: Care Physician,No Primary [Primary Care Provider] - 3-5 Days
== END 2018-12-10 21:23 | disposition home or self-care (01) ==
PROVIDERS: Emergency Provider Emergency Medicine
DX: S70.02XA Contusion of left hip, initial encounter (principal); W19.XXXA Unspecified fall, initial encounter; Y93.9 Activity, unspecified; Y92.9 Unspecified place or not applicable; Z72.0 Tobacco use
CPT/HCPCS: 73502; 99283